=== PATIENT | female | born 1995 | race Two or more races ===

== ENCOUNTER 2016-05-29 09:58 | Inpatient (IN) | payer MEDICAID, OTHER ==
[2016-05-29] VITALS (35 sets, daily range): BP systolic 80–128; BP diastolic 45–94; PULSE 80–144; RESP 17–18; TEMP 97.8–98.5
[~2016-05-29] VITALS: Ht 144.8 cm; Wt 54.4 kg
[2016-05-29] MEDS ORDERED: LACTATED RINGER'S 1000 ML INJ 1,000 ML IV SCH (10:24)
[2016-05-29] MEDS ORDERED: LACTATED RINGER'S 1000 ML INJ 1,000 ML IV PRN (10:24)
[2016-05-29] MEDS ORDERED: OXYTOCIN 30 UNITS-500ML PREMIX 500 ML IV ONE (10:30)
[2016-05-29] MEDS ORDERED: LIDOCAINE HCL 1% 50 ML VIAL INFIL PRN (10:30)
[2016-05-29] MEDS ORDERED: LIDOCAINE HCL 1% 50 ML VIAL I-DERMAL PRN (10:30)
[2016-05-29] MEDS ORDERED: MINERAL OIL 10 ML VIAL TOPICAL PRN (10:30)
[2016-05-29] MEDS ORDERED: SODIUM CHLORID 0.9% 500 ML INJ 500 ML IV PRN (10:30)
[2016-05-29] MEDS ORDERED: CITRIC ACID-SODIUM CITRATE LIQ 30 ML UDC PO SCH (10:30)
--- NOTE | 2016-05-29 10:34 | PD ---
HPI Chief Complaint Labor Date Seen: May 29, 2016 Time Seen: 10:26 (Jose Enrique Ward MD R2) Travel History International Travel<30 Days: No Contact w/Intl Traveler<30Days: No Known Affected Area: No (Jose Enrique Ward MD R2) History of Present Illness HPI 21 at 37.5 presents with regular contractions every 3-5 minutes and in labor. No loss of fluid. She is feeling the patient normally. GBS negative. No vaginal bleeding. Para: 1 : 2 (Jose Enrique Ward MD R2) History Past Medical History Medical History: Denies Significant Hx (Jose Enrique Ward MD R2) Past Surgical History Surgical History: No Previous Surgery (Jose Enrique Ward MD R2) Family History Family History: Negative (Jose Enrique Ward MD) Social History Alcohol Use: No Tobacco Use: No Substance Abuse: No (Jose Enrique Ward MD R2) Allergies-Medications (Allergen,Severity, Reaction): Coded Allergies: No Known Allergies (Unverified , 05/29/16) Home Meds No Active Prescriptions or Reported Meds Physical Exam Narrative GENERAL: Well-nourished, well-developed patient. SKIN: Warm and dry. HEAD: Normocephalic and atraumatic. EYES: No scleral icterus. No injection or drainage. ENT: No nasal drainage noted. Mucous membranes pink. Airway patent. NECK: Supple, trachea midline. No JVD. CARDIOVASCULAR: Regular rate and rhythm without murmurs, gallops, or rubs. RESPIRATORY: Breath sounds equal bilaterally. No accessory muscle use. GENITOURINARY: Dilatation: 6 Effacement: 100 Station: -1 Presentation: Vertex Membranes: Intact Uterine Contractions: Every 3 -5 minutes FHT's: Category: 1 Baseline: 145 Reactive: Yes with accelerations Variability: moderate Decels: None EXTREMITIES: No cyanosis or edema. BACK: Nontender without obvious deformity. No CVA tenderness. NEUROLOGICAL: Awake and alert. Motor and sensory grossly within normal limits. Five out of 5 muscle strength in all muscle groups. Normal speech. (Jose Enrique Ward MD R2) Data Data Vital Signs Reviewed: Yes Orders Admit To Inpatient (05/29/16 ) Code Status (05/29/16 10:24) Vital Signs (Adult) .Per protocol (05/29/16 10:24) Activity Oob Ad Earnestine (05/29/16 10:24) ^ Heart (05/29/16 10:24) ^ Amnioinfusion (05/29/16 10:24) Urinary Catheter Management .ONCE (05/29/16 10:24) Diet Npo (05/29/16 Lunch) Lactated Ringer's 1000 Ml Inj (Lr 1000 M (05/29/16 10:24) Lactated Ringer's 1000 Ml Inj (Lr 1000 M (05/29/16 10:24) Sodium Chlorid 0.9% 500 Ml Inj (Ns 500 M (05/29/16 10:30) Sodium Chlor 0.9% 1000 Ml Inj (Ns 1000 M (05/29/16 10:44) Lidocaine 1% Inj (50 Ml) (Xylocaine 1% I (05/29/16 10:30) Citric Acid-Sodium Citrate Liq (Bicitra (05/29/16 10:30) Fentanyl Inj (Fentanyl Inj) (05/29/16 10:30) Fentanyl Inj (Fentanyl Inj) (05/29/16 10:30) Complete Blood Count With Diff (05/29/16 10:24) Hold Clot (05/29/16 10:24) Abo/Rh Blood Type (05/29/16 10:24) Urinalysis - C+S If Indicated (05/29/16 10:24) Resp Oxygen Non Rebreathe Mask (05/29/16 ) ^ Epidural / Intrathecal Infus (05/29/16 10:24) Oxytocin 30 Units-500ml Premix (Pitocin (05/29/16 10:30) Lidocaine 1% Inj (50 Ml) (Xylocaine 1% I (05/29/16 10:30) Light Mineral Oil (Muri-Lube Oil) (05/29/16 10:30) Inpatient Certification (05/29/16 ) (Jose Enrique Ward MD R2) MDM Medical Record Reviewed: Yes Interpretation(s) 21-year-old at 37.5 GBS negative presents in labor. 1. Intrauterine -Category 1 tracing -Patient desires epidural -Expectant vaginal delivery -Continue to monitor -GBS negative 2. Labor -Expectant vaginal delivery Seen discussed with Dr. Strong (Jose Enrique Ward MD R2) Attending Attestation Patient seen and evaluated with resident under direct supervision, agree with assessment and plan. (Gilmar Flores MD) Diagnosis Diagnosis: Primary Impression: Labor Scripts No Active Prescriptions or Reported Meds Jose Enrique Ward MD R2 May 29, 2016 10:34 Gilmar Flores MD May 29, 2016 12:14
[2016-05-29] MEDS ORDERED: SODIUM CHLOR 0.9% 1000 ML INJ 1,000 ML IV PRN (10:44)
--- NOTE | 2016-05-29 10:46 | HHI.HP ---
History & Physical H&P HPI Chief Complaint Labor Date Seen: May 29, 2016 Time Seen: 10:26 Travel History International Travel<30 Days: No Contact w/Intl Traveler<30Days: No Known Affected Area: No History of Present Illness HPI 21 at 37.5 presents with regular contractions every 3-5 minutes and in labor. No loss of fluid. She is feeling the patient normally. GBS negative. No vaginal bleeding. Para: 1 : 2 History Past Medical History Medical History: Denies Significant Hx Past Surgical History Surgical History: No Previous Surgery Family History Family History: Negative Social History Alcohol Use: No Tobacco Use: No Substance Abuse: No Allergies-Medications (Allergen,Severity, Reaction): Coded Allergies: No Known Allergies (Unverified , 05/26/16) Home Meds No Active Prescriptions or Reported Meds Physical Exam Narrative GENERAL: Well-nourished, well-developed patient. SKIN: Warm and dry. HEAD: Normocephalic and atraumatic. EYES: No scleral icterus. No injection or drainage. ENT: No nasal drainage noted. Mucous membranes pink. Airway patent. NECK: Supple, trachea midline. No JVD. CARDIOVASCULAR: Regular rate and rhythm without murmurs, gallops, or rubs. RESPIRATORY: Breath sounds equal bilaterally. No accessory muscle use. GENITOURINARY: Dilatation: 6 Effacement: 100 Station: -1 Presentation: Vertex Membranes: Intact Uterine Contractions: Every 3 -5 minutes FHT's: Category: 1 Baseline: 145 Reactive: Yes with accelerations Variability: moderate Decels: None EXTREMITIES: No cyanosis or edema. BACK: Nontender without obvious deformity. No CVA tenderness. NEUROLOGICAL: Awake and alert. Motor and sensory grossly within normal limits. Five out of 5 muscle strength in all muscle groups. Normal speech. Data Data Vital Signs Reviewed: Yes Orders Admit To Inpatient (05/29/16 ) Code Status (05/29/16 10:24) Vital Signs (Adult) .Per protocol (05/29/16 10:24) Activity Oob Ad Earnestine (05/29/16 10:24) ^ Heart (05/29/16 10:24) ^ Amnioinfusion (05/29/16 10:24) Urinary Catheter Management .ONCE (05/29/16 10:24) Diet Npo (2/3/17 Lunch) Lactated Ringer's 1000 Ml Inj (Lr 1000 M (05/29/16 10:24) Lactated Ringer's 1000 Ml Inj (Lr 1000 M (05/29/16 10:24) Sodium Chlorid 0.9% 500 Ml Inj (Ns 500 M (05/29/16 10:30) Sodium Chlor 0.9% 1000 Ml Inj (Ns 1000 M (05/29/16 10:44) Lidocaine 1% Inj (50 Ml) (Xylocaine 1% I (05/29/16 10:30) Citric Acid-Sodium Citrate Liq (Bicitra (05/29/16 10:30) Fentanyl Inj (Fentanyl Inj) (05/29/16 10:30) Fentanyl Inj (Fentanyl Inj) (05/29/16 10:30) Complete Blood Count With Diff (05/29/16 10:24) Hold Clot (05/29/16 10:24) Abo/Rh Blood Type (05/29/16 10:24) Urinalysis - C+S If Indicated (05/29/16 10:24) Resp Oxygen Non Rebreathe Mask (05/29/16 ) ^ Epidural / Intrathecal Infus (05/29/16 10:24) Oxytocin 30 Units-500ml Premix (Pitocin (05/29/16 10:30) Lidocaine 1% Inj (50 Ml) (Xylocaine 1% I (05/29/16 10:30) Light Mineral Oil (Muri-Lube Oil) (05/29/16 10:30) Inpatient Certification (05/29/16 ) [facility] Medical Record Reviewed: Yes Interpretation(s) 21-year-old at 37.5 GBS negative presents in labor. 1. Intrauterine -Category 1 tracing -Patient desires epidural -Expectant vaginal delivery -Continue to monitor -GBS negative 2. Labor -Expectant vaginal delivery Seen discussed with Dr. Strong Diagnosis Diagnosis: Primary Impression: Labor Scripts No Active Prescriptions or Reported Meds Jose Enrique Ward MD R2 May 29, 2016 10:34 <Electronically signed by Jose Enrique Howe MD R2 Ed> 05/29/16 1034 (Jose Enrique Ward MD R2) H&P Patient seen and evaluated with resident under direct supervision, agree with assessment and plan. (Gilmar Flores MD) Jose Enrique Ward MD R2 May 29, 2016 10:46 Gilmar Flores MD May 29, 2016 12:15
[2016-05-29] MEDS ORDERED: ePHEDrine/NS 25 MG/5 ML SYR ONE (11:46)
[2016-05-29] MEDS ORDERED: fentaNYL 2MCG-BUPIV 0.125% INJ 100 ML ONE (11:46)
[2016-05-29 11:58] LABS: AUTOMATED NEUTROPHIL # 13.6 TH/MM3 (1.8-7.7); BASOPHIL % 0.1 % (0.0-2.0); EOSINOPHIL % 0.2 % (0.0-4.0); HEMATOCRIT 42.4 % (35.0-46.0); HEMO FLAGS DIFF FINAL; LYMPH % 19.1 % (9.0-44.0); LYMPHOCYTE # 3.5 TH/MM3 (1.0-4.8); MEAN CELL VOLUME 85.2 FL (80.0-100.0); MEAN CORPUSCULAR HEMOGLOBIN 28.7 PG (27.0-34.0); MEAN CORPUSCULAR HGB CONC 33.6 % (32.0-36.0); MONO % 7.6 % (0.0-8.0); PLATELET COUNT 240 TH/MM3 (150-450); RED BLOOD COUNT 4.98 MIL/MM3 (4.00-5.30); RED CELL DISTRIBUTION WIDTH 13.6 % (11.6-17.2); WHITE BLOOD COUNT 18.6 TH/MM3 (4.0-11.0)
[2016-05-29 12:33] LABS: BACTERIA, URINE FEW /hpf; BLOOD, URINE MOD (NEG); GLUCOSE,URINE NEG (NEG); KETONE, URINE NEG (NEG); MUCUS URINE FEW /lpf (OCC); NITRITE,URINE NEG (NEG); PH, URINE 7.5 (5.0-8.5); SQUAMOUS EPITHELIAL CELL URINE 2 /hpf (0-5); URINE COLOR YELLOW (YELLW/STRAW)
[2016-05-29 12:35] LABS: COMMENT (UR) CULT NOT INDICATED; CULTURE IF INDICATED CULT NOT INDICATED
[2016-05-29] MEDS ORDERED: ePHEDrine/NS 50 MG/5 ML SYR IV PRN (13:00)
[2016-05-29] MEDS ORDERED: fentaNYL 2MCG-BUPIV 0.125% INJ 100 ML EPIDURAL SCH (13:00)
[2016-05-29] MEDS ORDERED: DO NOT ADMINISTER ANTICOAGULANTS XX PRN (13:00)
[2016-05-29] MEDS ORDERED: NO SYSTEM NARCOTICS XX PRN (13:00)
--- NOTE | 2016-05-29 15:13 | PD.LABORPN ---
Subjective Subjective Artificial rupture of membranes at 1500. Clear fluid observed. Patient tolerated procedure well. Epidural in place and effective. No complaints at this time. (Jose Enrique Ward MD R2) Objective Vital Signs Vital Signs Date Time Temp Pulse Resp B/P Pulse Ox O2 Delivery O2 Flow Rate FiO2 05/29/16 15:00 90 102/52 05/29/16 14:30 88 105/50 05/29/16 14:15 98.5 18 05/29/16 14:15 94 101/59 05/29/16 14:01 98 100/46 05/29/16 13:45 102 99/48 05/29/16 13:30 111 119/66 05/29/16 13:15 95 108/53 05/29/16 13:00 111 114/58 05/29/16 12:45 104 124/51 05/29/16 12:40 107 123/54 05/29/16 12:35 137 128/65 05/29/16 12:33 144 84/59 05/29/16 12:30 96 106/47 05/29/16 12:28 118 115/94 05/29/16 12:25 89 112/57 05/29/16 12:20 83 104/61 05/29/16 12:15 17 05/29/16 12:15 98 97/61 05/29/16 12:15 98.4 05/29/16 12:10 86 116/62 05/29/16 10:52 96 123/68 Objective Pelvic Exam: Dilatation: 7-8 Effacement: 80% Station: -1 Presentation: Vertex Membranes: Ruptured Uterine Contractions: Every 3-5 minutes FHT's: Category: 1 Baseline: 130 Reactive: yes with accelerations Variability: Moderate Decels: None (Jose Enrique Ward MD R2) Assessment/Plan Assessment and Plan 21-year-old at 37.5 in active labor Tolerated AROM at 1500. Category 1 tracing Expectant vaginal delivery Continue to monitor (Jose Enrique Ward MD R2) Assessment and Plan Patient seen and evaluated with resident under direct supervision, agree with assessment and plan. (Gilmar Flores MD) Jose Enrique Ward MD R2 May 29, 2016 15:13 Gilmar Flores MD May 29, 2016 19:08
[2016-05-29] MEDS ORDERED: MEASLES, MUMPS, RUBELLA VACCINE 0.5 ML VIAL SQ ONE (16:00)
[2016-05-29] MEDS ORDERED: DIPHTH/TETANUS/ACEL PERTUSSIS (BOOSTER) 0.5 ML VIAL/PFS IM ONE (16:00)
--- NOTE | 2016-05-29 17:26 | PD.OB.DELI ---
Delivery Date: May 29, 2016 Anesthesia: Epidural Episiotomy: None Vaginal Delivery: Normal, Spontaneous Presentation: Occiput anterior Nuchal Cord: None Delayed cord clamping (45 sec): Yes : Female, Single One Minute : 8 Five Minute : 9 Weight: 2575g Infant Care: Suctioned, Spontaneous crying, Responded to stimulation Placenta: Spontaneous delivery, Intact, 3 vessel cord Laceration: No lacerations Additional Information Delivery: Dr. Rouse Attending: Dr. Strong No laceration repair required (Christal Rouse MD R1) Additional Information Patient seen and evaluated with resident and delivery was under my direct supervision, agree with assessment and plan. (Gilmar Flores MD) Christal Rouse MD R1 May 29, 2016 17:26 Gilmar Flores MD May 29, 2016 19:09
[2016-05-29] MEDS ORDERED: SODIUM CHLORIDE 0.9% FLUSH 5 ML FLUSH IV PRN (17:30)
[2016-05-29] MEDS ORDERED: WITCH HAZEL 50%/GLYCERIN 12.5% 40 PAD JAR TOPICAL PRN (17:30)
[2016-05-29] MEDS ORDERED: ALUMINUM/MAGNESIUM/SIMETH 30 ML CUP PO PRN (17:30)
[2016-05-29] MEDS ORDERED: ONDANSETRON ODT 4 MG TAB PO PRN (17:30)
[2016-05-29] MEDS ORDERED: ZOLPIDEM TARTRATE 5 MG TAB PO PRN (17:30)
[2016-05-29] MEDS ORDERED: ACETAMINOPHEN 325 MG TAB PO PRN (17:30)
[2016-05-29] MEDS ORDERED: BENZOCAINE 20% TOPICAL SPRAY 60 ML CAN TOPICAL PRN (17:30)
[2016-05-29] MEDS: SODIUM CHLORIDE 0.9% FLUSH 5 ML FLUSH IV SCH (21:00)
[2016-05-29] MEDS: IBUPROFEN 600 MG TAB PO PRN (21:23)
[2016-05-30] MEDS: oxyCODONE/ACETAMINOPHEN 5 MG/325 MG TAB PO PRN ×4 (02:15→20:31)
[2016-05-30] MEDS: DOCUSATE SODIUM 50 MG/SENNA 8.6 MG TAB PO PRN ×2 (02:15→20:30)
[2016-05-30] MEDS: IBUPROFEN 600 MG TAB PO PRN ×3 (07:52→20:30)
[2016-05-30 08:24] VITALS: BP 102/52; PULSE 86; RESP 18; TEMP 97.5
[2016-05-30] MEDS ORDERED: INFLUENZA VIRUS VACCINE (QUADRIVALENT) 0.5 ML SYR IM ONE (09:00)
--- NOTE | 2016-05-30 09:44 | HHI.OB ---
Subjective Post Day: 1 Remarks 21 year old female s/p at 37/5 wks gestation, PPD 1. AFVSS. History limited due to drowsiness from recent Percocet administration. Otherwise patient reports she is feeling well. Bleeding is decreasing and pain is well- controlled. She is breast feeding and bonding well with baby. Has no complaints at this time. (Carolina Robins MD R2) Remarks Patient seen and evaluated with resident under direct supervision, agree with assessment and plan. (Gilmar Flores MD) Objective Vitals/I&O Vital Signs Date Time Temp Pulse Resp B/P Pulse Ox O2 Delivery O2 Flow Rate FiO2 05/30/16 08:24 97.5 86 18 102/52 05/29/16 19:35 18 05/29/16 19:35 98.3 05/29/16 19:30 108 110/75 05/29/16 19:05 18 05/29/16 19:00 106 110/64 05/29/16 18:45 107 102/55 05/29/16 18:30 97 103/55 05/29/16 18:20 18 05/29/16 18:15 95 96/46 05/29/16 18:00 100 99/55 05/29/16 17:45 104 105/62 05/29/16 17:30 110 104/62 05/29/16 17:20 18 05/29/16 17:20 97.8 05/29/16 17:17 106 96/52 05/29/16 17:16 110 80/45 05/29/16 16:01 96 110/54 05/29/16 15:30 80 106/55 05/29/16 15:00 90 102/52 05/29/16 14:30 88 105/50 05/29/16 14:15 98.5 18 05/29/16 14:15 94 101/59 05/29/16 14:01 98 100/46 05/29/16 13:45 102 99/48 05/29/16 13:30 111 119/66 05/29/16 13:15 95 108/53 05/29/16 13:00 111 114/58 05/29/16 12:45 104 124/51 05/29/16 12:40 107 123/54 05/29/16 12:35 137 128/65 05/29/16 12:33 144 84/59 05/29/16 12:30 96 106/47 05/29/16 12:28 118 115/94 05/29/16 12:25 89 112/57 05/29/16 12:20 83 104/61 05/29/16 12:15 17 05/29/16 12:15 98 97/61 05/29/16 12:15 98.4 05/29/16 12:10 86 116/62 05/29/16 10:52 96 123/68 Objective Remarks GENERAL: Well-nourished, well-developed patient. CARDIOVASCULAR: Regular rate and rhythm without murmurs, gallops, or rubs. RESPIRATORY: Breath sounds equal bilaterally. No accessory muscle use. ABDOMEN/GI: Abdomen soft, non-tender. Fundus: Firm, non-tender at umbilicus. GENITOURINARY: Light to moderate bleeding. EXTREMITIES: No cyanosis or edema, non-tender, without signs of DVT. Medications and IVs Current Medications Medications (Trade) Dose Ordered Sig/Kang Route Start Time Stop Time Status Last Admin Miscellaneous Information No systemic narcotics to be given except... UNSCH PRN XX 05/29/16 13:00 05/30/16 12:59 Miscellaneous Information DO NOT ADMINISTER ANY ANTICOAGUL... UNSCH PRN XX 05/29/16 13:00 05/30/16 12:59 (NS Flush) 2 ml BID IV 05/29/16 21:00 (NS Flush) 2 ml UNSCH PRN IV 05/29/16 17:30 (Tylenol) 650 mg Q4H PRN PO 05/29/16 17:30 (Motrin) 600 mg Q6H PRN PO 05/29/16 17:30 05/30/16 07:52 (Percocet 5-325 Mg) 1 tab Q4H PRN PO 05/29/16 17:30 05/30/16 02:15 (Percocet 5-325 Mg) 2 tab Q4H PRN PO 05/29/16 17:30 05/30/16 07:52 (Americaine 20% Top Spr) 1 spray Q4H PRN TOPICAL 05/29/16 17:30 (Tucks Pads) 1 applic QID PRN TOPICAL 05/29/16 17:30 (Shanon-Colace) 2 tab Q12H PRN PO 05/29/16 17:30 05/30/16 02:15 (Ambien) 5 mg HS PRN PO 05/29/16 17:30 (Mag-Al Plus Susp Liq) 15 ml Q8H PRN PO 05/29/16 17:30 (Zofran Odt) 4 mg Q6H PRN PO 05/29/16 17:30 (Carolina Robins MD R2) Assessment/Plan Assessment and Plan 21 yo female s/p PPD 1. - AFVSS - Continue routine care - Motrin and Percocet PRN pain - Encourage OOB - Pelvic rest x 6 wks. - Contraception were discussed tomorrow - Recommend post follow up in 6 wks - Anticipate D/C tomorrow dw Dr. Flores (Carolina Robins MD R2) Carolina Robins MD R2 May 30, 2016 09:44 Gilmar Flores MD May 30, 2016 09:54
[2016-05-30] MEDS ORDERED: IBUP-232 PO (09:45)
--- NOTE | 2016-05-30 09:45 | HHI.DCPOC ---
Discharge Care Plan Diagnosis: (1) NVD (normal vaginal delivery) Report Symptoms to Your Doctor -Temperate above 100.5 degrees -Redness, of incision or excessive or foul smelling drainage -Unusual pain or calf pain -Increased vaginal bleeding -Painful or difficulty urinating -Feelings of extreme sadness or anxiety after 2 weeks Goals to Promote Your Health * To prevent worsening of your condition and complications * To maintain your health at the optimal level Directions to Meet Your Goals Take your medications as prescribed Follow your dietary instruction Follow activity as directed Ensure plenty of rest for recovery Drink fluids for hydration Keep your appointments as scheduled Take your immunizations and boosters as scheduled If your symptoms worsen call your PCP, if no PCP go to Urgent Care Center or Emergency Room Smoking is Dangerous to Your Health. Avoid second hand smoke Call the 24-hour crisis hotline for domestic abuse at Carolina Robins MD R2 May 30, 2016 09:45 Gilmar Flores MD May 30, 2016 09:54
[2016-05-30] MEDS: SODIUM CHLORIDE 0.9% FLUSH 5 ML FLUSH IV SCH (20:02)
[2016-05-31] MEDS: IBUPROFEN 600 MG TAB PO PRN (04:33)
[2016-05-31] MEDS: oxyCODONE/ACETAMINOPHEN 5 MG/325 MG TAB PO PRN (04:33)
--- NOTE | 2016-05-31 07:08 | HHI.OB ---
Subjective Post Day: 2 Remarks 21 year old female s/p at 37/5 wks gestation, PPD 2. AFVSS. Patient was requiring Percocet and ibuprofen yesterday for pain due to abdominal cramping, but states this has improved significantly. She can now use ibuprofen only to control symptoms. only, good latch, good milk production. She has no concerns, ready to go home with baby. Follow-up [facility] be with [facility]. Bleeding is reportedly light. (Luz Arora MD R1) Objective Vitals/I&O Vital Signs Date Time Temp Pulse Resp B/P Pulse Ox O2 Delivery O2 Flow Rate FiO2 05/30/16 08:24 97.5 86 18 102/52 Objective Remarks GENERAL: Well-nourished, well-developed female in NAD. CARDIOVASCULAR: Regular rate and rhythm without murmurs, gallops, or rubs. RESPIRATORY: Breath sounds equal bilaterally. No accessory muscle use. ABDOMEN/GI: Abdomen soft, non-tender. Fundus: Firm, non-tender at umbilicus. GENITOURINARY: Light bleeding. EXTREMITIES: No cyanosis or edema, non-tender, without signs of DVT. Medications and IVs Current Medications Medications (Trade) Dose Ordered Sig/Kang Route Start Time Stop Time Status Last Admin (NS Flush) 2 ml BID IV 05/29/16 21:00 (NS Flush) 2 ml UNSCH PRN IV 05/29/16 17:30 (Tylenol) 650 mg Q4H PRN PO 05/29/16 17:30 (Motrin) 600 mg Q6H PRN PO 05/29/16 17:30 05/31/16 04:33 (Percocet 5-325 Mg) 1 tab Q4H PRN PO 05/29/16 17:30 05/31/16 04:33 (Percocet 5-325 Mg) 2 tab Q4H PRN PO 05/29/16 17:30 05/30/16 20:31 (Americaine 20% Top Spr) 1 spray Q4H PRN TOPICAL 05/29/16 17:30 (Tucks Pads) 1 applic QID PRN TOPICAL 05/29/16 17:30 (Shanon-Colace) 2 tab Q12H PRN PO 05/29/16 17:30 05/30/16 20:30 (Ambien) 5 mg HS PRN PO 05/29/16 17:30 (Mag-Al Plus Susp Liq) 15 ml Q8H PRN PO 05/29/16 17:30 (Zofran Odt) 4 mg Q6H PRN PO 05/29/16 17:30 (Luz Arora MD R1) Assessment/Plan Problem List: (1) NVD (normal vaginal delivery) Assessment and Plan 21 yo female s/p PPD 2. Stable for discharge. Plan: - AFVSS - Continue routine care - Motrin PRN pain at discharge - Continue OOB as tolerated - Pelvic rest x 6 wks. - Contraception: desires Depo Provera - Recommend post follow up in 6 wks - Anticipate D/C today dw Dr. Diego, soow Dr. Carolina Robins Discharge Planning Discharge today (Luz Arora MD R1) Attending Attestation Patient seen and evaluated with the resident under direct supervision, I agree with the assessment and plan. (Kevon Galicia MD) Luz Arora MD R1 May 31, 2016 07:08 Kevon Galicia MD May 31, 2016 09:20
[2016-05-31 08:00] VITALS: BP 102/55; PULSE 83; RESP 18; TEMP 97.9
[2016-05-31] MEDS ORDERED: medroxyPROGESTERone ACETATE SUSP 150 MG/ML SYRINGE IM ONE (08:00)
[2016-07-10] MEDS ORDERED: NORA0.35 PO (10:49)
== END 2016-05-31 14:09 | disposition home or self-care (01) | DRG 775 ==
LOC: HOBED 09:58 → H2EA 10:35 → H1EA 20:08
PROVIDERS: ADMIT Obstetrics & Gynecology; ATTEND Obstetrics & Gynecology
PROC: 10E0XZZ Delivery of Products of Conception, External Approach (ICD-10-PCS; principal; 2016-05-29)
PROC: 3E0R3CZ (ICD-10-PCS; 2016-05-29)
PROC: 00HU33Z Insertion of Infusion Device into Spinal Canal, Percutaneous Approach (ICD-10-PCS; 2016-05-29)
PROC: 10907ZC Drainage of Amniotic Fluid, Therapeutic from Products of Conception, Via Natural or Artificial Opening (ICD-10-PCS; 2016-05-29)
DX: O80 Encounter for full-term uncomplicated delivery (principal); Z37.0 Single live birth; Z3A.37 37 weeks gestation of pregnancy
CPT/HCPCS: 81001; 85025; 86900; 86901; 90686; 90715; 99285; J1050; J3010; J7120; Q2038